=== PATIENT | male | born 1930 | race Caucasian/White ===

== ENCOUNTER 2017-03-03 07:39 | Emergency (ER) | payer OTHER ==
[2017-03-03 07:47] VITALS: BP 114/74; TEMP 99.2; BMI 23.8
[2017-03-03] MEDS ORDERED: SODIUM CHLORIDE 1,000 ML IV STA (07:50)
[2017-03-03 08:05] LABS: BASOPHILS % (AUTO) 0.2 % (0.0-3.0); HEMATOCRIT 42.7 % (42.0-52.0); HEMOGLOBIN 14.8 g/dl (14.0-18.0); IMMATURE GRANULOCYTE % (AUTO) 0.4 % (0.0-5.0); LYMPHOCYTES # (AUTO) 0.9 K/uL (0.60-3.4); LYMPHOCYTES % (AUTO) 6.1 (10.0-50.0); MEAN CORPUSCULAR HEMOGLOBIN 32.5 pg (27.0-31.0); MEAN CORPUSCULAR HGB CONC 34.7 (31.8-35.4); MEAN CORPUSCULAR VOLUME 93.8 fl (80.0-94.0); MONOCYTES # (AUTO) 0.8 K/uL (0.4-2.0); MONOCYTES % (AUTO) 5.5 (0-10); NEUTROPHILS # (AUTO) 12.4 K/ul (2.0-6.9); NEUTROPHILS % (AUTO) 87.8; PLATELET COUNT 262 10^3/uL (140-440); RED BLOOD COUNT 4.55 10^6/ul (4.70-6.10); WHITE BLOOD COUNT 14.06 K/ul (4.2-10.2)
[2017-03-03] MEDS ORDERED: PROTONIX IV 80 MG in SODIUM CHLORIDE 100 ML IV SCH (08:15)
[2017-03-03 08:17] LABS: PROTHROMBIN TIME 11.1 SEC (9.3-11.0)
--- NOTE | 2017-03-03 08:22 | ED.PDOC ---
General ED Provider: Dr. BETH MATIAS-ER Chief Complaint: GI Bleed Stated Complaint: im vomiting up blood and im not going to [place]--if you have to transfer me--send me to [place] Time Seen by Physician: 07:45 Mode of Arrival: Walk-In Information Source: Patient, Family Exam Limitations: No limitations Nursing and Triage Documentation Reviewed and Agree: Yes GI Complaint Exam - GI Bleed Complaint/Exam Patient Complains of: Reports: Vomiting blood Onset/Duration: 12hrs Symptoms Are: Still present Episodes Lasting: Hours Severity: Reports: Coffee ground emesis, Hematemesis. Denies: Blood-streaked stool, Black tarry stool, Bright red blood-rectum Location of Pain: Reports: Diffuse Character: Reports: Dull Aggravating: Reports: NSAIDs Alleviating: Reports: None Associated Signs and Symptoms: Reports: Weakness. Denies: Back Pain, Pallor, Dizziness, Syncope, Constipation, Nausea, Rectal pain, Bruising, Weight loss, Recent abnormal coags GI Bleed Risk Factors: Reports: Aspirin use Recent Colonoscopy: No Recent EGD: No Abdominal Findings: Present: None Differential Diagnoses: Esophagitis, Gastritis, PUD Review of Systems - Review Of Systems Constitutional: Reports: No symptoms Eyes: Reports: No symptoms Ears, Nose, Mouth, Throat: Reports: No symptoms Respiratory: Reports: No symptoms Cardiac: Reports: No symptoms GI: Reports: Nausea, Poor appetite, Vomiting : Reports: No symptoms Musculoskeletal: Reports: No symptoms Skin: Reports: No symptoms Neurological: Reports: No symptoms Endocrine: Reports: No symptoms Hematologic/Lymphatic: Reports: No symptoms All Other Systems: Reviewed and Negative Past Medical History - Past Medical History Previously Healthy: Yes Endocrine: Reports: Unknown Cardiovascular: Reports: Unknown Respiratory: Reports: Unknown Hematological: Reports: Unknown Gastrointestinal: Reports: Unknown Genitourinary: Reports: Unknown Neuro/Psych: Reports: Unknown Musculoskeletal: Reports: Unknown Cancer: Reports: Unknown - Surgical History General Surgical History: Reports: Unknown - Family History Family History: Reports: Unknown - Social History Smoking Status: Former smoker Hx Substance Use: No Alcohol Screening: None Lives: With family Physical Exam - Physical Exam Appearance: Well-appearing, No pain distress, Well-nourished Eyes: SHERIDAN, EOMI, Conjunctiva clear ENT: Ears normal, Nose normal, Oropharynx normal Neck: Supple Respiratory: Airway patent Cardiovascular: RRR, Pulses normal, No rub, No murmur GI/: Soft, Nontender, No masses, Bowel sounds normal, No Organomegaly Musculoskeletal: Normal strength, ROM intact, No edema, No calf tenderness Skin: Warm, Dry, Normal color Neurological: Sensation intact, Motor intact, Reflexes intact, Cranial nerves intact, Alert, Oriented Psychiatric: Affect appropriate, Mood appropriate Interpretation - Radiology Interpretation Radiology Interpretation By: Radiologist ("esophageal thickening") Radiology Results: Positive Exam Interpreted: CT Scan - EKG Interpretation Time of EKG #1: 08:05 Rate: Normal Rhythm: Sinus Ectopy: None Maryneal: NL Re-Evaluation - Re-Evaluation Time of Re-Evaluation: 09:42 Status: Improved (no vomiting) Vital Signs Stable: Yes Pain Level: 0 Appearance: NAD Lungs: Clear Skin: Warm and Dry Neuro: Alert and Oriented X3 CV: RRR Physician Notification - Case Discussed Physician Notified: dr mukherjee indicated he would accept if gi would--received call 9:45 Time of Notification: 09:43 Critical Care Note - Critical Care Note Total Time (mins): 0 Course - Course Hematology/Chemistry: 03/03/17 07:55 03/03/17 07:55 Orders, Labs, Meds: Lab Review 03/03/17 03/03/17 07:55 08:30 WBC 14.06 H RBC 4.55 L Hgb 14.8 Hct 42.7 MCV 93.8 MCH 32.5 H MCHC 34.7 RDW Coeff of Jesus Alberto 12.9 Plt Count 262 Immature Gran % (Auto) 0.4 Neut % (Auto) 87.8 Lymph % (Auto) 6.1 L Norman % (Auto) 5.5 Eos % (Auto) 0.0 Baso % (Auto) 0.2 Immature Gran # (Auto) 0.1 Neut # 12.4 H Lymph # 0.9 Norman # 0.8 Eos # 0.0 Baso # 0.0 PT 11.1 H INR 1.08 Sodium 142 Potassium 3.9 Chloride 103 Carbon Dioxide 26 Anion Gap 16.9 BUN 25 H Creatinine 1.50 H Estimated GFR (MDRD) 44.00 BUN/Creatinine Ratio 16.66 Glucose 157 H Calcium 11.0 H Total Bilirubin 0.66 AST 29 ALT 20 Alkaline Phosphatase 65 Total Creatine Kinase 148 CK-MB (CK-2) 2.1 CK-MB (CK-2) % 1.04777 Troponin I 0.0870 Total Protein 7.7 Albumin 3.8 Globulin 3.9 Albumin/Globulin Ratio 0.97 Stl Occult Blood (IFOB) Negative Stool Occult Blood #2 No specimen received Stool Occult Blood #3 No specimen received Orders Category Date Time Status EKG-(ED ONLY) Stat CARDIO 03/03/17 07:58 Completed TRANSFER TO OUTSIDE FACILITY .TO [facility] 03/03/17 09:44 Active MEDICAL [facility]ENTER ([place], [place]) WRITE TRANSFER/SBAR NOTE ONCE CARE 03/03/17 09:44 Active DISCHARGE ASSESSMENT ONCE DISCHARGE 03/03/17 09:44 Active WRITE DISCHARGE NOTE ONCE DISCHARGE 03/03/17 09:44 Active [employer]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] .ONCE EMERGENCY 03/03/17 08:02 Active IV [ED IV/MEDIPORT/POWERPORT] .ONCE EMERGENCY 03/03/17 07:50 Active CBC W/ AUTO DIFF Stat LAB 03/03/17 07:55 Completed COMPREHENSIVE METABOLIC PANEL Stat LAB 03/03/17 07:55 Completed CREATINE KINASE Stat LAB 03/03/17 07:55 Completed OCCULT BLOOD, STOOL Stat LAB 03/03/17 08:30 Completed PT WITH INR Stat LAB 03/03/17 07:55 Completed TROPONIN I Stat LAB 03/03/17 07:55 Completed 0.9 % Sodium Chloride [Saline Flush] MEDS 03/03/17 07:50 Active 1 syr IVF PRN PRN Pantoprazole Sodium [Protonix IV] MEDS 03/03/17 08:51 Discontinued 80 mg .ROUTE .STK-MED ONE Pantoprazole Sodium [Protonix IV] 80 mg MEDS 03/03/17 08:15 Active 0.9 % Sodium Chloride [Sodium Chloride] 100 ml IV Q10H Sodium Chloride 0.9% [Sodium Chloride] 1,000 ml MEDS 03/03/17 07:50 Active IV 100 mls/hr CT ABDOMEN/PELVIS WO CONTRAST Stat RADS 03/03/17 07:[address] CHEST W/O CONTRAST Stat RADS 03/03/17 07:41 Completed Medications Generic Name Dose Route Start Last Admin Trade Name Freq PRN Reason Stop Dose Admin Sodium Chloride 1,000 mls @ 100 mls/hr 03/03/17 07:50 03/03/17 08:48 Sodium Chloride IV 03/03/17 17:49 100 mls/hr .Q10H STA Administration Pantoprazole Sodium 80 mg/ 100 mls @ 10 mls/hr 03/03/17 08:15 03/03/17 09:06 Sodium Chloride IV 10 mls/hr Q10H ELVIRA Administration Sodium Chloride 1 syr 03/03/17 07:50 Saline Flush IVF PRN PRN To flush IV Vital Signs: Temp Pulse Resp BP Pulse Ox 03/03/17 07:40 99.2 F 106 H 24 114/74 93 L Departure - Departure Time of Disposition: 09:43 Disposition: TSF SHORT-TRM HOSP Discharge Problem: Gastrointestinal hemorrhage Instructions: Gastrointestinal Bleeding (ED) Condition: Stable Pt referred to PMD for follow-up: No Allergies/Adverse Reactions: Allergies No Known Allergies Allergy (Verified 03/03/17 07:54) Home Medications: Ambulatory Orders Aspirin [Aspirin Chewable] 81 mg PO DAILYWM 03/03/17 Ferrous Sulfate [Iron] 325 mg PO DAILY 03/03/17 Levothyroxine Sodium [Synthroid] 25 mcg PO QDAC 03/03/17 Multivitamin 1 cap PO DAILY 03/03/17 Simvastatin [Zocor] 20 mg PO DAILY 03/03/17 Terbinafine HCl [Lamisil] 250 mg PO DAILY 03/03/17 Terbinafine [Lamisil At] 12 gm TP DAILY 03/03/17 Vitamin B Complex 1 each PO DAILY 03/03/17 Transfer Form Completed: Yes Disposition Discussed With: Patient, Family
[2017-03-03 08:23] LABS: ALBUMIN 3.8 g/dL (3.4-5.0); ALBUMIN/GLOBULIN RATIO 0.97; ANION GAP 16.9; BILIRUBIN,TOTAL 0.66 mg/dL (0.00-1.20); BUN/CREATININE RATIO 16.66; CREATININE 1.5 mg/dL (0.60-1.10); POTASSIUM 3.9 mmol/L (3.5-5.1); TOTAL PROTEIN 7.7 g/dL (5.8-8.1)
[2017-03-03 08:37] LABS: TROPONIN I 0.087 ng/ml (0.0000-0.4000)
[2017-03-03 08:39] LABS: OCCULT BLOOD INTERNAL QC 1 INTERNAL QC VALID; OCCULT BLOOD INTERNAL QC 2 INTERNAL QC VALID; OCCULT BLOOD SAMPLE 1 NEGATIVE (NEGATIVE); OCCULT BLOOD SAMPLE 2 NO SPECIMEN RECEIVED (NEGATIVE)
[2017-03-03 08:40] LABS: OCCULT BLOOD INTERNAL QC 3 INTERNAL QC VALID; OCCULT BLOOD SAMPLE 3 NO SPECIMEN RECEIVED (NEGATIVE)
[2017-03-03 08:41] LABS: CREATINE KINASE MB 2.1 ng/ml (0.0-3.6)
[2017-03-03] MEDS ORDERED: PROTONIX IV ONE (08:51)
--- NOTE | 2017-03-03 09:01 | CT ---
EXAM: CT chest without contrast HISTORY: Cough, hemoptysis COMPARISON: None TECHNIQUE: CT chest performed without intravenous contrast. Coronal and sagittal reformatted image s obtained. FINDINGS: Visualized thyroid and thoracic inlet grossly unremarkable, though poorly evaluated secon calli to streak artifact from bilateral shoulder arthroplasty. Heart normal in size. Coronary calci fications. Aorta normal in caliber. Atherosclerosis. Evaluation for lymphadenopathy limited witho ut contrast. No lymphadenopathy identified. Calcified mediastinal and hilar lymph nodes, consisten t with old granulomatous disease. Significant diffuse esophageal wall thickening with a small hiata l hernia. No acute abnormalities of the bones. Degenerative changes in the spine. Central airway patent. No pneumothorax or pleural effusion. Left basilar bronchial wall thickening with associate d mild atelectasis. Mild right basilar linear subsegmental atelectasis and/or scarring. Granuloma tous calcification. No airspace consolidation. Please refer to separate report CT abdomen pelvis r egarding findings in the upper abdomen. IMPRESSION: 1. Left basilar bronchial wall thickening suggestive of infectious/inflammatory bronchiolitis or po ssibly changes of aspiration. Mild associated atelectasis 2. Significant diffuse esophageal wall thickening suggestive of esophagitis. 3. Small hiatal hernia. 4. Coronary calcifications. Atherosclerosis.
--- NOTE | 2017-03-03 09:09 | CT ---
EXAM: CT abdomen pelvis without contrast HISTORY: Nausea, vomiting, diarrhea 3 days COMPARISON: None TECHNIQUE: CT abdomen pelvis performed without intravenous contrast. Coronal and sagittal reformat tonio images obtained. FINDINGS: Evaluation limited due to motion artifact. Please refer to separate report CT chest rega rding findings in the lower chest. No free air. No acute abnormalities of the bones. Degenerative change in the spine. Evaluation organ parenchyma limited without contrast. Granulomas calcificati on in the liver. Liver otherwise grossly unremarkable. Gallbladder grossly unremarkable. Pancreas grossly unremarkable. Granulomatous calcification in the spleen. Spleen otherwise grossly unremar kable. Adrenals grossly unremarkable. There is a 5 mm nonobstructing left renal calculus. Low den sity left renal lesion measures slightly greater than simple fluid attenuation and measuring 2.4 cm. This probably represents cyst with artifact. No calculi visualized in the normal course of the ur eters. Bladder unremarkable. Prostate moderately enlarged. Aorta normal in caliber. Extensive at herosclerosis. There is esophageal wall thickening with esophagus incompletely imaged. Small hiata l hernia. No dilated loops small bowel. Appendix not identified. Moderate fecal retention in the colon. Colonic diverticulosis. IMPRESSION: 1. Limited evaluation due motion artifact and lack of intravenous contrast. 2. Esophageal wall thickening demonstrated to be diffuse on corresponding CT chest, suggestive of e sophagitis. Small hiatal hernia. 3. Moderately enlarged prostate. 4. Mild colonic diverticulosis. 5. Moderate fecal retention. 6. Left nephrolithiasis. No hydronephrosis. 7. Probable 2.4 cm left renal cyst as described, though measures slightly greater than simple fluid attenuation and correlation with ultrasound recommended. 8. Extensive atherosclerosis.
== END 2017-03-03 10:45 | disposition short-term general hospital (02) ==
LOC: ED 07:39
DX: K92.2 Gastrointestinal hemorrhage, unspecified (principal); K22.8 Other specified diseases of esophagus; K92.0 Hematemesis; R11.2 Nausea with vomiting, unspecified; R53.1 Weakness
CPT/HCPCS: 36415; 80053; 82272; 82550; 82553; 84484; 85025; 85610; 93005; 93010; 96365; 96366; 99285

== ENCOUNTER 2017-03-03 10:47 | Outpatient (CLI) ==
[2017-03-03 07:47] VITALS: BMI 23.8
== END 2017-03-03 10:48 | disposition home or self-care (01) ==
LOC: AMBL 10:47
PROVIDERS: ATTEND Family Medicine
DX: K92.2 Gastrointestinal hemorrhage, unspecified (principal)

== ENCOUNTER 2017-06-20 17:59 | Emergency (ER) ==
[2017-06-20 18:09] VITALS: BP 165/95; TEMP 99.1; BMI 24.0
--- NOTE | 2017-06-20 19:12 | ED.PDOC ---
General ED Provider: Dr. BETH MATIAS-ER Chief Complaint: Head Injury Stated Complaint: i tripped in the gravel Time Seen by Physician: 19:10 Mode of Arrival: Stretcher Information Source: Patient, EMT Exam Limitations: No limitations Nursing and Triage Documentation Reviewed and Agree: Yes Neurological Complaint Exam - Headache Complaint/Exam Onset: Sudden Duration: one hour approx Symptoms Are: Resolved Worst Headache Ever: No Initial Severity: Mild Current Severity: None Location: Frontal Character: Reports: Dull Aggravating: Reports: None Alleviating: Reports: None Associated Signs and Symptoms: Denies: Dizziness, Seizure, Nausea, Vomiting, Sinus pressure, Fever, Neck pain, Neck stiffness, Decreased LOC, Visual changes Related History: Reports: Recent trauma Related Surgical History: Reports: None SAH Risk Factors: Reports: None Meningitis Risk Factors: Reports: Elderly SDH Risk Factors: Reports: Male, Elderly, Recent trauma Temporal Arteritis Risk Factors: Reports: Female Normal Head CT Within Last 12 Months: No Fundoscopic Exam: Present: Normal Findings Papilledema Present: No Temporal Artery Tenderness: Present: None Sinus Tenderness: Present: None TMJ Tenderness: Present: None Glascow Coma Scale (see protocol): 15 Meningeal Signs Positive: No Pain on Passive Flexion-Positive Kernig's: No ROM Limited In: Side bending left Focal Weakness: Present: None Focal Sensory Loss: Present: None Gait: Unable Nystagmus Present: No Gag Reflex Present: Yes [id number]: Normal Findings Romberg Test Positive: No Babinski Sign: Negative Right, Negative Left Heel to Toe Normal: Yes Differential Diagnoses: Other (trauma) Review of Systems - Review Of Systems Constitutional: Reports: No symptoms Eyes: Reports: No symptoms Ears, Nose, Mouth, Throat: Reports: No symptoms Respiratory: Reports: No symptoms Cardiac: Reports: No symptoms GI: Reports: No symptoms : Reports: No symptoms Musculoskeletal: Reports: No symptoms Skin: Reports: No symptoms Neurological: Reports: Headache Endocrine: Reports: No symptoms Hematologic/Lymphatic: Reports: No symptoms All Other Systems: Reviewed and Negative Past Medical History - Past Medical History Previously Healthy: Yes Endocrine: Reports: Unknown Cardiovascular: Reports: Unknown Respiratory: Reports: Unknown Hematological: Reports: Unknown Gastrointestinal: Reports: Unknown Genitourinary: Reports: Unknown Neuro/Psych: Reports: Unknown Musculoskeletal: Reports: Unknown Cancer: Reports: Unknown - Surgical History General Surgical History: Reports: Unknown - Family History Family History: Reports: Unknown - Social History Smoking Status: Former smoker Hx Substance Use: No Alcohol Screening: None Lives: With family Physical Exam - Physical Exam Appearance: Well-appearing, No pain distress, Well-nourished Pain Distress: Mild Eyes: SHERIDAN, EOMI, Conjunctiva clear ENT: Ears normal, Nose normal, Oropharynx normal Neck: Supple Respiratory: Airway patent, Breath sounds clear, Breath sounds equal, Respirations nonlabored Cardiovascular: RRR, Pulses normal, No rub, No murmur GI/: Soft, Nontender, No masses, Bowel sounds normal, No Organomegaly Musculoskeletal: Normal strength, ROM intact, No edema, No calf tenderness Skin: Warm, Dry, Normal color (noted abrasions over forehead with bruising) Neurological: Sensation intact, Motor intact, Reflexes intact, Cranial nerves intact, Alert, Oriented Psychiatric: Affect appropriate Interpretation - Radiology Interpretation Radiology Interpretation By: Radiologist Radiology Results: Negative Exam Interpreted: CT Scan Critical Care Note - Critical Care Note Total Time (mins): 0 Course - Course Orders, Labs, Meds: Orders Category Date Time Status CT CERVICAL SPINE W/O CONTRAST Stat RADS 06/20/17 18:[address] HEAD W/O CONTRAST Stat RADS 06/20/17 18:[address] MAXILLOFACIAL W/O CONTRAST Stat RADS 06/20/17 18:55 Taken Vital Signs: Temp Pulse Resp BP Pulse Ox 06/20/17 18:00 99.1 F 97 H 20 165/95 H 94 L Departure - Departure Time of Disposition: 21:08 Disposition: HOME SELF-CARE Discharge Problem: Injury of head Instructions: Facial Contusion (ED) Condition: Good Pt referred to PMD for follow-up: Yes Additional Instructions: tylenol for pain---ice --return prn Allergies/Adverse Reactions: Allergies No Known Allergies Allergy (Verified 06/20/17 18:17) Home Medications: Ambulatory Orders Aspirin [Aspirin Chewable] 81 mg PO DAILYWM 03/03/17 Ferrous Sulfate [Iron] 325 mg PO DAILY 03/03/17 Levothyroxine Sodium [Synthroid] 25 mcg PO QDAC 03/03/17 Multivitamin 1 cap PO DAILY 03/03/17 Simvastatin [Zocor] 20 mg PO DAILY 03/03/17 Terbinafine HCl [Lamisil] 250 mg PO DAILY 03/03/17 Vitamin B Complex 1 each PO DAILY 03/03/17 Metoprolol Tartrate [Lopressor] 25 mg PO BID 06/20/17 Disposition Discussed With: Patient
--- NOTE | 2017-06-20 20:13 | CT ---
EXAM: CT Head HISTORY: Fall COMPARISON: None TECHNIQUE: CT head performed without contrast FINDINGS: Streak artifact from metallic density left posterior calvarium limits evaluation. There is no mass effect, midline shift, or intracranial hemmorhage identified. Amaro white differentiation is preserved. There is no extra-axial collection. The ventricles, sulci, and basal cisterns are paten t and symmetric. There is chronic ischemic disease of the white matter and cerebral volume loss. Th ere is no depressed calvarial fracture. Postsurgical changes in the left mastoid air cells. Mild muc osal thickening of the paranasal sinuses There are intracranial atherosclerotic calcifications. IMPRESSION: 1. No acute intracranial abnormality identified. Streak artifact from metallic density left posterior calvarium limits evaluation. 2. Right frontal scalp hematoma. No depressed calvarial fracture. 3. 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 4. Mild sinusitis.
--- NOTE | 2017-06-20 20:15 | CT ---
EXAM: CT scan of the cervical spine without contrast HISTORY: Fall TECHNIQUE: Imaging of the cervical spine was performed without contrast. Sagittal and coronal recon structions and axial images were provided for interpretation. FINDINGS: There is straightening of the cervical spine. The occipital condyles, C1 ring appear inta ct. The odontoid process and C2 vertebral body appear normal. The spinous processes are intact. 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 IMPRESSION: No evidence of acute fracture dislocation seen within the cervical spine.
[2017-06-20] MEDS ORDERED: TYLENOL PO STA (21:09)
--- NOTE | 2017-06-20 21:09 | CT ---
EXAM: CT facial bones without contrast HISTORY: Fall COMPARISON: None TECHNIQUE: CT facial bones performed without intravenous contrast. Coronal and sagittal reformatted images obtained. FINDINGS: Postsurgical changes left mastoid air cells. Right mastoid air cells clear. Temporal man dibular joints normally aligned. Zygomatic maxillary complexes intact. Orbital ledbetter intact. Mild chronic appearing deformity of the nasal bones. No acute facial bone fracture identified. Globes an d retrobulbar structures unremarkable. Mild mucosal thickening paranasal sinuses. Right frontal scal p hematoma. IMPRESSION: 1. No acute facial bone fracture identified. 2. Mild chronic appearing deformity of the anterior nasal bones. 3. Right frontal scalp hematoma. 4. Mild sinusitis.
== END 2017-06-20 21:23 | disposition home or self-care (01) ==
LOC: ED 17:59
DX: S00.83XA Contusion of other part of head, initial encounter (principal); S00.81XA Abrasion of other part of head, initial encounter; W01.0XXA Fall on same level from slipping, tripping and stumbling without subsequent striking against object, initial encounter
CPT/HCPCS: 99283